=== PATIENT | female | born 1950 | race Caucasian/White ===

== ENCOUNTER → 2016-05-29 | Outpatient (CLI) | payer OTHER ==
[~2016-05-29] MED LIST: IOPAMIDOL (ISOVUE 370) 100 ML BTL IV ONE
--- NOTE | 2016-05-29 13:03 | CT ---
CT Angiography of the Abdomen and Pelvis Indication: Celiac stenosis. Technique: 1.5 mm contiguous helical axial scanning was performed through the abdomen and pelvis afte r the uneventful administration of IV contrast. The patient received 95 mL of Isovue-370. Routine rec onstructions were performed in the coronal and sagittal planes. Dose reduction technique was performe d. Comparison: May 08, 2016. Findings: Linear scarring is present at the left lung base. There are separate origins to the splenic artery and the remainder of the common hepatic artery. The left gastric artery originates off the sp lenic artery. An 8 mm splenic artery origin narrows to 2.8 mm at the ostia. A 7.8 mm common hepatic a rtery origin narrows to 2.7 mm at the ostia. The SMA is widely patent. Dual renal arteries are presen t on the right that are widely patent. Dual renal arteries are present on the left that are widely pa tent. The YUSEF is patent. Infrarenal abdominal aorta, common iliac, internal iliac, and external iliac arteries are widely patent. Common femoral arteries are widely patent. There is no evidence of aneur ysmal dilation. Mild calcified atherosclerotic disease is present. The liver, spleen, adrenals, and pancreas are unremarkable. There is a nonobstructing punctate calcul us in the right lower collecting system measuring 2.2 mm. Small bowel and colon are unremarkable. Non aggressive sclerotic lesion is present in the right inferior pubic rami likely representing a bone is land. Mild degenerative changes of the spine are present. Impression: 1. There are separate trunks to the splenic and common hepatic artery off the aorta. Both are stenoti c, but this is likely of no clinical significance. The remainder of the visceral vasculature is widel y patent. 2. Punctate nonobstructing right renal calculus, lower collecting system.
== END ==
LOC: FIMAGING 10:49
PROVIDERS: ATTEND Family Medicine
DX: Z03.89 Encounter for observation for other suspected diseases and conditions ruled out (principal); N20.0 Calculus of kidney
CPT/HCPCS: Q9967

== ENCOUNTER → 2016-12-17 | Outpatient (CLI) | payer OTHER | LOC: FIMAGING 07:01 | PROVIDERS: ATTEND Specialist ==

== ENCOUNTER → 2017-04-27 | Outpatient (CLI) | payer OTHER | LOC: BMCIMAGING 15:16 | PROVIDERS: ATTEND Family Medicine | DX: Z13.820 Encounter for screening for osteoporosis (principal); M85.89 Other specified disorders of bone density and structure, multiple sites ==

== ENCOUNTER 2017-07-23 10:30 | Observation (INO) | payer OTHER, MEDICARE ==
[2017-07-23] MEDS ORDERED: ONDANSETRON 4 MG/2 ML VIAL IVP ONE ×2 (11:03→12:16)
[2017-07-23] MEDS ORDERED: HYDROmorphONE/DILAUDID 2 MG/ML INJ IVP ONE ×2 (11:09→11:30)
--- NOTE | 2017-07-23 11:15 | EDPHY ---
General Time Seen by Provider: 07/23/17 11:10 Narrative: CHIEF COMPLAINT: Flank pain HISTORY OF PRESENT ILLNESS: Patient complains of right flank pain. This started abruptly this morning. She had already awoke prior to the pain starting. It is significant, 10/10 pain. No position of comfort. Located on the right flank and radiating into the suprapubic abdomen. Nausea but no vomiting. No fever. No trauma or injury. Some dysuria. No hematuria. No previous history of renal colic or stones. No history of pyelonephritis. She does have history of biliary colic. No other associated complaints or modifying factors. REVIEW OF SYSTEMS: Ten systems reviewed and are negative unless otherwise noted in the HPI PCP: Dr. Cyndy Hodges SPECIALISTS: None PAST MEDICAL HISTORY: Biliary colic PAST SURGICAL HISTORY: No recent surgeries SOCIAL HISTORY: Nonsmoker. No drug or alcohol use. FAMILY HISTORY: Noncontributory EXAMINATION General Appearance: Alert, no distress, in obvious discomfort. Head: normocephalic, atraumatic Eyes: Pupils equal and round, no conjunctival pallor or injection ENT, Mouth: Mucous membranes moist. Neck: Normal inspection, supple, non-tender Respiratory: Lungs are clear to auscultation Cardiovascular: Tachycardic rate. Regular rhythm. No murmur Gastrointestinal: Abdomen is soft and nondistended. There is moderate right CVA tenderness. There is moderate suprapubic tenderness. No tympany. No rigidity. No guarding. Back: non-tender, no bony abnormalities Neurological: A&O, nonfocal, normal gait Skin: Warm and dry, no rash no petechiae or purpura Extremities: Nontender, no pedal edema Psychiatric: Mood and affect normal DIFFERENTIAL DIAGNOSES: Including but not limited to pyelonephritis, renal colic, ureteral stone, bladder calculus, biliary colic, diverticulitis, colitis MDM: 11:10 a.m. Acute right flank pain with suspected renal colic. She has no position of comfort and has moderate right CVA tenderness. Vital Signs suggest kidney stone as well. She is afebrile. She is not vomiting. She is in no acute distress but is in obvious discomfort. Pain medication is currently being administered. 12:00 p.m. Notified by radiologist Dr. Barajas. There is a 5 mm stone in the right distal ureter near the UVJ. Moderate hydronephrosis. 12:20 p.m. Patient re-evaluated. She is nauseated but her pain is improving. Continue IV fluid resuscitation. Urinalysis has just been sent. 12:50 p.m. Urinalysis shows 2+ leukocyte esterase had multiple at blood cells. I reviewed this lab with Dr. Mast, and he recommends starting antibiotic therapy. 1:00 p.m. Patient re-evaluated. She was initially feeling better, that she is now feeling sweaty and has vomited again. I have ordered a dose of promethazine. Continue to monitor. 1:30 p.m. Patient is resting comfortably but still nauseated feeling sweaty. 2:00 p.m. patient re-evaluated. She now appears to be feeling worse. She is perseverating diaphoretic. Her vital signs remain within normal limits. I have ordered further IV fluid, and an additional dose of pain medication. 2:20 p.m. Case discussed with hospitalist Dr. Mera. He will admit the patient to his service. He requested we start within observation, medical-surgical bed. Her request lactic acid be drawn at this time. This has been done. She has been admitted in stable condition with pending lactic acid 2:35 p.m. Lactic acid is within normal limits at 1.7. Dr. Mera is requesting Urology consult and I have paged them. 2:50 p.m. Case discussed with on-call urologist Dr. Mijares. He will provide consultation. He requested the patient remain nothing by mouth after midnight for the possibility of surgical intervention tomorrow. I have communicated this with the patient. SUPERVISION: Patient was evaluated and examined in conjunction with my secondary supervising physician as documented. We have both examined the patient. - Diagnostics Imaging Results: Imaging Impressions Abdomen/Pelvis CT 07/23/17 11:23 Impression: 1. 5-mm calculus distal right ureter at the ureterovesical junction, resulting in moderate hydronephrosis. 2. Bilateral nephrolithiasis. 3. No intra-abdominal mass or lymphadenopathy. Findings discussed with Emergency Department, Eyal Jay PA-C on July 23, 2017 at 1159 hours. Attention: This CT examination is specifically designed to evaluate patients who are clinically suspected of having acute obstructive uropathy. This examination does not use radiographic contrast, and as such, provides only a limited evaluation of the abdomen, pelvis and retroperitoneum. If there is further clinical suspicion for pathological conditions other than obstructive uropathy, a complete CT evaluation of the abdomen and pelvis utilizing intravenous, oral, and rectal contrast should be considered. - History Smoking Status: Never smoked - Objective Vital Signs: Initial Vital Signs Heart Rate 82 07/23/17 10:36 Respiratory Rate 17 07/23/17 10:36 O2 Sat (%) 100 07/23/17 10:36 O2 Delivery Mode Nasal Cannula O2 (L/minute) 2 Allergies/Adverse Reactions: Penicillins Allergy (Verified 07/23/17 10:34) Sulfa (Sulfonamide Antibiotics) Allergy (Verified 07/23/17 10:34) Home Medications: Medication Instructions Recorded Aspirin [Aspirin 81mg (*)] 81 mg PO DAILY 07/23/17 Docusate Sodium [Colace 100 MG (*)] 100 mg PO DAILY 07/23/17 Evolocumab [Repatha Syringe] 140 mg SQ Q14D 07/23/17 Herbals/Supplements -Info Only 1 ea PO DAILY 07/23/17 Multivitamins [Multivitamin (*)] 1 each PO DAILY 07/23/17 Laboratory Results: Laboratory Results 07/23/17 11:00 07/23/17 11:00 07/23/17 07/23/17 07/23/17 12:05 11:00 11:00 WBC RBC Hgb Hct MCV MCH MCHC RDW Plt Count MPV Neut % (Auto) Lymph % (Auto) [place] % (Auto) Eos % (Auto) Baso % (Auto) Nucleat RBC Rel Count Absolute Neuts (auto) Absolute Lymphs (auto) Absolute Monos (auto) Absolute Eos (auto) Absolute Basos (auto) Absolute Nucleated RBC Immature Gran % Immature Gran # PT 12.6 SEC SEC (12.0-15.0) INR 0.92 (0.83-1.16) APTT 22.9 SEC L SEC (23.0-38.0) Sodium 142 mEq/L mEq/L (135-145) Potassium 3.8 mEq/L mEq/L (3.5-5.2) Chloride 109 mEq/L mEq/L (97-110) Carbon Dioxide 18 mEq/l L mEq/l (22-31) Anion Gap 15 mEq/L mEq/L (8-16) BUN 15 mg/dL mg/dL (7-23) Creatinine 0.8 mg/dL mg/dL (0.6-1.0) Estimated GFR > 60 Glucose 124 mg/dL H mg/dL (70-100) Calcium 9.7 mg/dL mg/dL (8.5-10.4) Total Bilirubin 0.8 mg/dL mg/dL (0.1-1.4) Conjugated Bilirubin 0.2 mg/dL mg/dL (0.0-0.5) Unconjugated Bilirubin 0.6 mg/dL mg/dL (0.0-1.1) AST 26 IU/L IU/L (14-46) ALT 39 IU/L IU/L (9-52) Alkaline Phosphatase 108 IU/L IU/L (38-126) Total Protein 7.5 g/dL g/dL (6.3-8.2) Albumin 4.5 g/dL g/dL (3.5-5.0) Lipase 75 IU/L IU/L (23-300) Urine Color YELLOW Urine Appearance MODERATELY TURBID Urine pH 8.0 H (5.0-7.5) Ur Specific [place] 1.020 (1.002-1.030) Urine Protein 1+ H (NEGATIVE) Urine Ketones 1+ H (NEGATIVE) Urine Blood NEGATIVE (NEGATIVE) Urine Nitrate NEGATIVE (NEGATIVE) Urine Bilirubin NEGATIVE (NEGATIVE) Urine Urobilinogen NEGATIVE EU EU (0.2-1.0) Ur Leukocyte Esterase 2+ H (NEGATIVE) Urine RBC 5-10 /hpf H /hpf (0-3) Urine WBC 50-182 /hpf H /hpf (0-3) Ur Epithelial Cells TRACE /lpf /lpf (NONE-1+) Urine Mucus TRACE /lpf /lpf (NONE-1+) Urine Glucose NEGATIVE (NEGATIVE) 07/23/17 11:00 WBC 8.40 10^3/uL 10^3/uL (3.80-9.50) RBC 4.31 10^6/uL 10^6/uL (4.18-5.33) Hgb 14.3 g/dL g/dL (12.6-16.3) Hct 40.8 % % (38.0-47.0) MCV 94.7 fL fL (81.5-99.8) MCH 33.2 pg pg (27.9-34.1) MCHC 35.0 g/dL g/dL (32.4-36.7) RDW 12.6 % % (11.5-15.2) Plt Count 318 10^3/uL 10^3/uL (150-400) MPV 9.5 fL fL (8.7-11.7) Neut % (Auto) 66.5 % % (39.3-74.2) Lymph % (Auto) 23.2 % % (15.0-45.0) [place] % (Auto) 7.5 % % (4.5-13.0) Eos % (Auto) 1.5 % % (0.6-7.6) Baso % (Auto) 1.1 % % (0.3-1.7) Nucleat RBC Rel Count 0.0 % % (0.0-0.2) Absolute Neuts (auto) 5.58 10^3/uL 10^3/uL (1.70-6.50) Absolute Lymphs (auto) 1.95 10^3/uL 10^3/uL (1.00-3.00) Absolute Monos (auto) 0.63 10^3/uL 10^3/uL (0.30-0.80) Absolute Eos (auto) 0.13 10^3/uL 10^3/uL (0.03-0.40) Absolute Basos (auto) 0.09 10^3/uL 10^3/uL (0.02-0.10) Absolute Nucleated RBC 0.00 10^3/uL 10^3/uL (0-0.01) Immature Gran % 0.2 % % (0.0-1.1) Immature Gran # 0.02 10^3/uL 10^3/uL (0.00-0.10) PT INR APTT Sodium Potassium Chloride Carbon Dioxide Anion Gap BUN Creatinine Estimated GFR Glucose Calcium Total Bilirubin Conjugated Bilirubin Unconjugated Bilirubin AST ALT Alkaline Phosphatase Total Protein Albumin Lipase Urine Color Urine Appearance Urine pH Ur Specific [place] Urine Protein Urine Ketones Urine Blood Urine Nitrate Urine Bilirubin Urine Urobilinogen Ur Leukocyte Esterase Urine RBC Urine WBC Ur Epithelial Cells Urine Mucus Urine Glucose Medications Given: Hydromorphone HCl (Dilaudid) 0.2 - 1 mg IVP Q2 PRN PRN Reason: Pain, Severe Unable to Take PO Stop: 08/02/17 14:40 Last Admin: 07/23/17 15:19 Dose: 1 mg Discontinued Medications Fentanyl (Sublimaze) 100 mcg IVP EDNOW ONE Stop: 07/23/17 14:05 Last Admin: 07/23/17 14:35 Dose: 100 mcg Hydromorphone HCl (Dilaudid) 1 mg IVP EDNOW ONE Stop: 07/23/17 11:10 Last Admin: 07/23/17 11:14 Dose: 1 mg Hydromorphone HCl (Dilaudid) 1 mg IVP EDNOW ONE Stop: 07/23/17 11:31 Last Admin: 07/23/17 11:37 Dose: 1 mg Sodium Chloride (Ns) 1,000 mls @ 0 mls/hr IV ONCE ONE PRN Reason: Wide Open Stop: 07/23/17 11:18 Last Admin: 07/23/17 11:17 Dose: 1,000 mls Levofloxacin/Dextrose (Levaquin 750 Mg (Premix)) 150 mls @ 100 mls/hr IV EDNOW ONE PRN Reason: Protocol Stop: 07/23/17 14:23 Last Admin: 07/23/17 13:12 Dose: 150 mls Sodium Chloride (Ns) 1,000 mls @ 0 mls/hr IV EDNOW ONE; Wide Open PRN Reason: Protocol Stop: 07/23/17 14:22 Last Admin: 07/23/17 14:34 Dose: 1,000 mls Ketorolac Tromethamine (Toradol) 15 mg IVP ONCE ONE Stop: 07/23/17 11:40 Last Admin: 07/23/17 11:43 Dose: 15 mg Ketorolac Tromethamine (Toradol) 15 mg IVP EDNOW ONE Stop: 07/23/17 12:01 Last Admin: 07/23/17 12:04 Dose: Not Given Ondansetron HCl (Zofran) 4 mg IVP EDNOW ONE Stop: 07/23/17 11:04 Last Admin: 07/23/17 11:07 Dose: 4 mg Ondansetron HCl (Zofran) 4 mg IVP EDNOW ONE Stop: 07/23/17 12:17 Last Admin: 07/23/17 12:19 Dose: 4 mg Promethazine HCl (Phenergan) 12.5 mg IVP ONCE ONE Stop: 07/23/17 13:02 Last Admin: 07/23/17 13:34 Dose: 12.5 mg Departure - Departure Disposition: [facility] Inpatient Acute Clinical Impression: Renal colic on right side, Ureteral stone with hydronephrosis Condition: Good
[2017-07-23] MEDS ORDERED: NS 1,000 ML IV ONE ×2 (11:17→14:21)
[2017-07-23 11:20] LABS: PLATELET COUNT 318 10^3/uL (150-400)
[2017-07-23 11:31] LABS: INR 0.92 (0.83-1.16); PROTIME(PATIENT) 12.6 SEC (12.0-15.0)
[2017-07-23] MEDS ORDERED: KETOROLAC 15 MG/1 ML SDV IVP ONE (11:39)
[2017-07-23] MEDS ORDERED: KETOROLAC 30 MG/1 ML SDV IVP ONE (12:00)
[2017-07-23] MEDS ORDERED: PROMETHAZINE HCL 25 MG/ML INJ IVP ONE (13:01)
[2017-07-23] MEDS ORDERED: fentaNYL 100 MCG/2 ML INJ IVP ONE (14:04)
[2017-07-23] MEDS ORDERED: ONDANSETRON 4 MG/2 ML VIAL IVP PRN (14:41)
[2017-07-23] MEDS ORDERED: HYDROmorphONE/DILAUDID 1 MG/ML INJ IVP PRN (14:41)
[2017-07-23] MEDS ORDERED: diphenhydrAMINE 25 MG CAP PO PRN (14:41)
[2017-07-23] MEDS ORDERED: ACETAMINOPHEN 325 MG TAB PO PRN (14:41)
[2017-07-23] MEDS ORDERED: HYDROmorphONE/DILAUDID 2 MG TAB PO PRN (14:41)
[2017-07-23] MEDS ORDERED: PROMETHAZINE HCL 25 MG TAB PO PRN (14:41)
[2017-07-23] MEDS ORDERED: ONDANSETRON DISINTEGRATING 4 MG TAB PO PRN (14:41)
[2017-07-23] MEDS ORDERED: PROMETHAZINE HCL 25 MG/ML INJ IVP PRN (14:41)
[2017-07-23] MEDS ORDERED: CIPROFLOXACIN 400 MG/DEXTROSE 200 ML IV SCH (14:45)
[2017-07-23] MEDS ORDERED: HYDROmorphONE/DILAUDID 2 MG/ML INJ ONE (15:18)
[2017-07-23] MEDS ORDERED: MAGNESIUM HYDROXIDE 30 ML UDCUP PO PRN (16:45)
[2017-07-23] MEDS ORDERED: BISACODYL 10 MG SUPP PR PRN (16:45)
[2017-07-23] MEDS ORDERED: POLYETHYLENE GLYCOL 3350 17 GM PKT PO PRN (16:45)
[2017-07-23] MEDS ORDERED: LACTULOSE 20 GM/30 ML UDCUP PO PRN (16:45)
--- NOTE | 2017-07-23 16:49 | PDGENHP ---
History and Physical - Chief Complaint Acute flank pain - History of Present Illness PCP: Dr. Hodges HPI: 66 yo F p/w acute flank pain characterized as 10/10 pain located in R flank /lower back, radiating to R suprapubic area, w/ associated vomiting, nausea, urinary hesitency, oliguria. Onset of symptoms this AM, duration constant. She has never had pain like this before. She reports it is of different character/ location than her "gall bladder" pain, which is post-prandial and in the RUQ/ anterior quadrant. Pain exacerbated by movement, partially alleviated w/ toradol /dilaudid in ED. PO intake exacerbated the vomiting, and she has therefore avoided PO intake today. In the ED, she began having rigors and became diaphoretic, but her BP/HR remained stable. History Information - Allergies/Home Medication List Allergies/Adverse Reactions: Penicillins Allergy (Verified 07/23/17 10:34) Sulfa (Sulfonamide Antibiotics) Allergy (Verified 07/23/17 10:34) Home Medications: Aspirin [Aspirin 81mg (*)] 81 mg PO DAILY 07/23/17 [Last Taken 07/23/17] Docusate Sodium [Colace 100 MG (*)] 100 mg PO DAILY 07/23/17 [Last Taken ] Evolocumab [Repatha Syringe] 140 mg SQ Q14D 07/23/17 [Last Taken 07/09/17] Herbals/Supplements -Info Only 1 ea PO DAILY 07/23/17 [Last Taken Unknown] Multivitamins [Multivitamin (*)] 1 each PO DAILY 07/23/17 [Last Taken 07/23/17] I have personally reviewed and updated: family history, medical history, social history, surgical history - Past Medical History hyperlipidemia Additional medical history: Biliary pain - Surgical History Additional surgical history: Knee/meniscal - Family History Additional family history: Sister with renal cell carcinoma - Social History Smoking Status: Never smoked Alcohol Use: None Drug Use: None Additional social history: Active lifestyle, exercises regularly Review of Systems Review of Systems: ROS: 10pt was reviewed & negative except for what was stated in HPI & below Constitutional: Reports: chills, other (Diaphoresis) Gastrointestinal: Reports: vomitting, nausea Genitourinary: Reports: other (Hesitancy, oliguria, flank pain) Physical Exam Physical Exam: Temp Pulse Resp BP Pulse Ox 36.9 C 86 14 146/66 H 99 07/23/17 15:21 07/23/17 15:21 07/23/17 15:21 07/23/17 15:21 07/23/17 15:21 O2 (L/minute) 2 Constitutional: appears nourished, uncomfortable, No no apparent distress (Mild) , No not in pain (Moderate) Eyes: PERRL, anicteric sclera, EOMI Ears, Nose, Mouth, Throat: moist mucous membranes, hearing normal, ears appear normal, no oral mucosal ulcers Cardiovascular: regular rate and rhythym, no murmur, rub, or gallop, No edema Respiratory: no respiratory distress, no rales or rhonchi, clear to auscultation Gastrointestinal: tenderness (Right flank), No normoactive bowel sounds ( Hypoactive bowel sounds), No guarding, No distension Genitourinary: no bladder fullness, no bladder tenderness Skin: No abrasion (Over right flank), No rash Neurologic: AAOx3, sensation intact bilaterally, No weakness Psychiatric: not encephalopathic, anxious, flat affect, No agitated Lab Data & Imaging Review 07/23/17 11:00 07/23/17 11:00 WBC 8.40 10^3/uL (3.80-9.50) 07/23/17 11:00 RBC 4.31 10^6/uL (4.18-5.33) 07/23/17 11:00 Hgb 14.3 g/dL (12.6-16.3) 07/23/17 11:00 Hct 40.8 % (38.0-47.0) 07/23/17 11:00 MCV 94.7 fL (81.5-99.8) 07/23/17 11:00 MCH 33.2 pg (27.9-34.1) 07/23/17 11:00 MCHC 35.0 g/dL (32.4-36.7) 07/23/17 11:00 RDW 12.6 % (11.5-15.2) 07/23/17 11:00 Plt Count 318 10^3/uL (150-400) 07/23/17 11:00 MPV 9.5 fL (8.7-11.7) 07/23/17 11:00 Neut % (Auto) 66.5 % (39.3-74.2) 07/23/17 11:00 Lymph % (Auto) 23.2 % (15.0-45.0) 07/23/17 11:00 [place] % (Auto) 7.5 % (4.5-13.0) 07/23/17 11:00 Eos % (Auto) 1.5 % (0.6-7.6) 07/23/17 11:00 Baso % (Auto) 1.1 % (0.3-1.7) 07/23/17 11:00 Nucleat RBC Rel Count 0.0 % (0.0-0.2) 07/23/17 11:00 Absolute Neuts (auto) 5.58 10^3/uL (1.70-6.50) 07/23/17 11:00 Absolute Lymphs (auto) 1.95 10^3/uL (1.00-3.00) 07/23/17 11:00 Absolute Monos (auto) 0.63 10^3/uL (0.30-0.80) 07/23/17 11:00 Absolute Eos (auto) 0.13 10^3/uL (0.03-0.40) 07/23/17 11:00 Absolute Basos (auto) 0.09 10^3/uL (0.02-0.10) 07/23/17 11:00 Absolute Nucleated RBC 0.00 10^3/uL (0-0.01) 07/23/17 11:00 Immature Gran % 0.2 % (0.0-1.1) 07/23/17 11:00 Immature Gran # 0.02 10^3/uL (0.00-0.10) 07/23/17 11:00 PT 12.6 SEC (12.0-15.0) 07/23/17 11:00 INR 0.92 (0.83-1.16) 07/23/17 11:00 APTT 22.9 SEC (23.0-38.0) L 07/23/17 11:00 VBG Lactic Acid 1.7 mmol/L (0.7-2.1) 07/23/17 14:30 Sodium 142 mEq/L (135-145) 07/23/17 11:00 Potassium 3.8 mEq/L (3.5-5.2) 07/23/17 11:00 Chloride 109 mEq/L (97-110) 07/23/17 11:00 Carbon Dioxide 18 mEq/l (22-31) L 07/23/17 11:00 Anion Gap 15 mEq/L (8-16) 07/23/17 11:00 BUN 15 mg/dL (7-23) 07/23/17 11:00 Creatinine 0.8 mg/dL (0.6-1.0) 07/23/17 11:00 Estimated GFR > 60 07/23/17 11:00 Glucose 124 mg/dL (70-100) H 07/23/17 11:00 Calcium 9.7 mg/dL (8.5-10.4) 07/23/17 11:00 Total Bilirubin 0.8 mg/dL (0.1-1.4) 07/23/17 11:00 Conjugated Bilirubin 0.2 mg/dL (0.0-0.5) 07/23/17 11:00 Unconjugated Bilirubin 0.6 mg/dL (0.0-1.1) 07/23/17 11:00 AST 26 IU/L (14-46) 07/23/17 11:00 ALT 39 IU/L (9-52) 07/23/17 11:00 Alkaline Phosphatase 108 IU/L (38-126) 07/23/17 11:00 Total Protein 7.5 g/dL (6.3-8.2) 07/23/17 11:00 Albumin 4.5 g/dL (3.5-5.0) 07/23/17 11:00 Lipase 75 IU/L (23-300) 07/23/17 11:00 Urine Color YELLOW 07/23/17 12:05 Urine Appearance MODERATELY TURBID 07/23/17 12:05 Urine pH 8.0 (5.0-7.5) H 07/23/17 12:05 Ur Specific [place] 1.020 (1.002-1.030) 07/23/17 12:05 Urine Protein 1+ (NEGATIVE) H 07/23/17 12:05 Urine Ketones 1+ (NEGATIVE) H 07/23/17 12:05 Urine Blood NEGATIVE (NEGATIVE) 07/23/17 12:05 Urine Nitrate NEGATIVE (NEGATIVE) 07/23/17 12:05 Urine Bilirubin NEGATIVE (NEGATIVE) 07/23/17 12:05 Urine Urobilinogen NEGATIVE EU (0.2-1.0) 07/23/17 12:05 Ur Leukocyte Esterase 2+ (NEGATIVE) H 07/23/17 12:05 Urine RBC 5-10 /hpf (0-3) H 07/23/17 12:05 Urine WBC 50-182 /hpf (0-3) H 07/23/17 12:05 Ur Epithelial Cells TRACE /lpf (NONE-1+) 07/23/17 12:05 Urine Mucus TRACE /lpf (NONE-1+) 07/23/17 12:05 Urine Glucose NEGATIVE (NEGATIVE) 07/23/17 12:05 Visualized and Interpreted imaging results: Yes Interpretation: CT of the abdomen demonstrating right-sided 5 mm stone in the distal ureter near the UVJ with hydronephrosis Assessment & Plan Assessment: 66-year-old female presenting with acute kidney stone and resultant hydronephrosis Plan: 1. Kidney stone. Acute obstruction in the right distal ureter, 5 mm, most likely require surgical intervention for removal, new problem this provider, further workup indicated. -strain urine, since stone for analysis -high rate IV fluids at 200 cc an hour -supportive pain medications and antiemetics -discussed with Eyal Jay, emergency department provider, he has reported to me that Dr. Devendra Mijares has been consulted and will see the patient tomorrow to evaluate for cystoscopy -maintain NPO after midnight -reviewed outside records including 05/29/2016 CT of the abdomen demonstrating right-sided kidney stone, 2.2 mm at that time, current CT demonstrates bilateral stones, patient will most likely require ongoing stone management for prevention moving forward 2. Hydronephrosis. Secondary to obstruction, creatinine currently normal, monitor creatinine level closely, monitor urine output, give high rate IV fluids , will most likely require surgical intervention for removal tomorrow if the stone does not pass 3. Metabolic acidosis. Acute, most likely secondary to starvation ketosis in the setting of poor oral intake, lactic acid level is normal, continue to monitor, continue high rate IV fluids Diet. Regular, NPO after midnight Prophylaxis. Low risk patient, SCDs, avoid pharm given surgical procedure tomorrow Code. Full Disposition anticipated discharge is 07/24, pending further workup and surgical evaluation in a.m..
[2017-07-23] MEDS: HYDROmorphONE/DILAUDID 2 MG/ML INJ IVP PRN ×2 (17:03→20:08)
[2017-07-23] MEDS: NS 1,000 ML IV SCH ×2 (17:07→22:29)
[2017-07-23] MEDS: KETOROLAC 15 MG/1 ML SDV IVP SCH (18:23)
[2017-07-23] MEDS: SENNOSIDES/DOCUSATE SODIUM TAB PO SCH (20:07)
[2017-07-24] MEDS: KETOROLAC 15 MG/1 ML SDV IVP SCH ×4 (01:32→12:26)
[2017-07-24] MEDS: NS 1,000 ML IV SCH (03:04)
[2017-07-24 05:40] LABS: PLATELET COUNT 212 10^3/uL (150-400)
[2017-07-24] MEDS ORDERED: fentaNYL 100 MCG/2 ML INJ ONE (07:43)
[2017-07-24] MEDS ORDERED: PROPOFOL 200 MG/20 ML VIAL ONE (07:43)
[2017-07-24] MEDS ORDERED: LIDOCAINE 2% 100 MG/5 ML SYR ONE (07:45)
[2017-07-24] MEDS ORDERED: ROCURONIUM 50 MG/5 ML VIAL ONE (07:45)
[2017-07-24] MEDS ORDERED: LIDOCAINE 2% JELLY 20 ML (UROJECT) ONE (07:49)
[2017-07-24] MEDS ORDERED: IOPAMIDOL (ISOVUE-300) 150 ML BTL ONE (07:49)
[2017-07-24] MEDS ORDERED: ceFAZolin 2 GM/SWFI 20 ML SYR IVP ONE (07:56)
[2017-07-24] MEDS ORDERED: MIDAZOLAM 2 MG/2 ML VIAL IVP ONE (08:01)
--- NOTE | 2017-07-24 08:06 | PDANEPAE ---
ANE History of Present Illness here for ureteroscopy ANE Past Medical History - Cardiovascular History Hx Hypertension: No Hx Arrhythmias: No Hx Chest Pain: No Cardiovascular History Comment: HLD - Pulmonary History Hx Oxygen in Use at Home: No Hx Sleep Apnea: No Sleep Apnea Screening Result - Last Documented: Negative - Endocrine History Hx Diabetes: No - GI History Gastrointestinal History Comment: constipation - Chronic Pain History Chronic Pain: No ANE Review of Systems Review of Systems: - Exercise capacity Exercise capacity: >=4 METS ANE Patient History - Allergies Allergies/Adverse Reactions: Penicillins Allergy (Verified 07/23/17 10:34) Sulfa (Sulfonamide Antibiotics) Allergy (Verified 07/23/17 10:34) - Home Medications Home Medications: Aspirin [Aspirin 81mg (*)] 81 mg PO DAILY 07/23/17 [Last Taken 07/23/17] Docusate Sodium [Colace 100 MG (*)] 100 mg PO DAILY 07/23/17 [Last Taken ] Evolocumab [Repatha Syringe] 140 mg SQ Q14D 07/23/17 [Last Taken 07/09/17] Herbals/Supplements -Info Only 1 ea PO DAILY 07/23/17 [Last Taken Unknown] Multivitamins [Multivitamin (*)] 1 each PO DAILY 07/23/17 [Last Taken 07/23/17] - NPO status NPO Status: no food or drink >8 hours NPO Since - Liquids (Date): 07/24/17 NPO Since - Liquids (Time): 12:00 NPO Since - Solids (Date): 07/24/17 NPO Since - Solids (Time): 12:00 - Anes Hx Anes Hx: post operative nausea and vomiting - Smoking Hx Smoking Status: Never smoked - Alcohol Use Alcohol Use: None - Family Anes Hx Family Anes Hx: none ANE Labs/Vital Signs - Labs Result Diagrams: 07/24/17 04:28 07/24/17 04:28 - Vital Signs Blood Pressure: 139/64 Heart Rate: 86 Respiratory Rate: 16 O2 Sat (%): 96 Height: 167.64 cm Weight: 79.379 kg ANE Physical Exam - Airway Neck exam: FROM Mallampati Score: Class 2 Mouth exam: normal dental/mouth exam - Pulmonary Pulmonary: no respiratory distress, clear to auscultation - Cardiovascular Cardiovascular: regular rate and rhythym, no murmur, rub, or gallop - ASA Status ASA Status: II ANE Anesthesia Plan Anesthesia Plan: general endotracheal anesthesia
[2017-07-24] MEDS ORDERED: SCOPOLAMINE HYDROBROMIDE 1 MG/3 DAYS PATCH TD ONE (08:09)
[2017-07-24] MEDS ORDERED: SCOPOLAMINE HYDROBROMIDE 1 MG/3 DAYS PATCH TD SCH (08:15)
[2017-07-24] MEDS ORDERED: PROPOFOL/EMULSION 500 MG/50 ML BOTTLE IV ONE (08:37)
--- NOTE | 2017-07-24 08:56 | GCON ---
[f rep st] CONSULTATION DATE OF CONSULTATION: 07/24/2017 REASON FOR CONSULTATION: Ureteral stone. HISTORY OF PRESENT ILLNESS: This is a 66-year-old female with a history of nephrolithiasis, who deve loped the sudden onset of right flank pain, unlike prior pain that she had had with her gallbladder, associated with nausea and vomiting. She presented to the emergency room. CT scan was performed and personally reviewed, which reveals a 5 x 4 mm distal right ureteral stone. The patient was admitted , hydrated, and kept n.p.o. for surgery. I have discussed with the patient the risks and benefits of surgery, and informed consent has been ob tained for ureteroscopy. PAST MEDICAL HISTORY: Hyperlipidemia. PAST SURGICAL HISTORY: Orthopedic. FAMILY HISTORY: Renal cell carcinoma with her sister. SOCIAL HISTORY: No smoking. She is . No alcohol or drug abuse. ALLERGIES: To penicillin and sulfa. HOME MEDICATIONS: Aspirin, Colace, evolocumab. REVIEW OF SYSTEMS: Negative in all 12 systems. PHYSICAL EXAMINATION: VITAL SIGNS: Her temperature is 36.9, pulse 86, respirations 14, blood pressu re 146/66, pulse 99, and oxygen saturation is 99. GENERAL: She is alert and oriented, with a normal mood and affect. NECK: Supple. RESPIRATORY: Effort is nonlabored. ABDOMEN: Soft, nontender, no ndistended. GENITALIA: She has normal external genitalia (performed in the operating room). EXTREM ITIES: Nontender. ASSESSMENT: Distal right ureteral stone. PLAN: Cystoscopy, ureteroscopy, laser fragmentation, and stent insertion. Again, informed consent w as obtained. /[id number]/MODL
--- NOTE | 2017-07-24 08:58 | SUROPNOTE ---
ALESS[facility] Operative Report - Surgery ureteroscopy NO STONE Stent inserted dictation code [id number]
[2017-07-24] MEDS ORDERED: ONDANSETRON 4 MG/2 ML VIAL IVP PRN (09:09)
[2017-07-24] MEDS ORDERED: ACETAMINOPHEN 500 MG TAB PO PRN (09:09)
[2017-07-24] MEDS ORDERED: NALOXONE HCL 0.4 MG/ML INJ IVP PRN (09:09)
[2017-07-24] MEDS ORDERED: PROMETHAZINE HCL 25 MG/ML INJ IVP PRN (09:09)
--- NOTE | 2017-07-24 09:11 | GOP ---
[f rep st] OPERATIVE REPORT DATE OF OPERATION: 07/24/2017 SURGEON: Alexander Mijares MD ANESTHESIA: General. PREOPERATIVE DIAGNOSIS: Distal right ureteral stone. POSTOPERATIVE DIAGNOSIS: Passed stone. PROCEDURE PERFORMED: Cystoscopy, ureteroscopy, stent insertion. FINDINGS: ESTIMATED BLOOD LOSS: Minimal. DESCRIPTION OF PROCEDURE: Patient was taken to the operating room. General anesthesia was induced. Patient was placed in the dorsal lithotomy position, prepped and draped in a sterile fashion. The 2 2-Mongolian cystoscope with a 30 degree lens was inserted through the patient's urethra into the patient 's bladder. Bladder was drained. There were no urothelial defects, masses or stones. The patient's right ureteral orifice was cannulated with a Sensor wire which was passed without difficulty into th e right renal pelvis. The inner trocar access sheath was passed over the guidewire gently dilating the distal right ureter and removed. A semi rigid ureteroscope was inserted alongside the wire into the proximal 3rd without stone seen. It was gradually withdrawn, again carefully inspecting the ureter. There was inflammation of the dis heladio right ureter, but no stone was seen. This scope was withdrawn. The wire was back-loaded on the cystoscope and a 6-Mongolian stent was placed in the right renal pelvis by fluoroscopy and seen to curl in the bladder by direct vision. The patient's bladder was drained. She was returned to the supine position, and at the time of this dictation was being prepared for extubation. indicating Ricarda Winters on July 24 on . Indication. COMPLICATIONS: None. DRAINS: Right-sided variable length 6-Mongolian stent. /[id number]/MODL
--- NOTE | 2017-07-24 09:14 | POSTANESTH ---
Post Anesthetic Evaluation Cardiovascular Status: Normal, Stable, Similar to Pre-Op Cond Respiratory Status: Normal, Stable, Similar to Pre-op Cond. Level of Consciousness/Mental Status: Can Participate in Eval, Alert and Oriented Pain Control: Adequate, Prn Tx Ordered Nausea/Vomiting Control: Adequate, Prn Tx Ordered Complications Possibly Related to Anesthesia: None Noted
[2017-07-24] MEDS: SENNOSIDES/DOCUSATE SODIUM TAB PO SCH (10:19)
--- NOTE | 2017-07-24 10:52 | GDS ---
[f rep st] DISCHARGE SUMMARY DIAGNOSIS: 1. Renal colic. 2. Dyslipidemia. CONSULTATIONS: Alexander Mijares MD PROCEDURES DONE: 1. CT scan of the abdomen and pelvis, 5 mm distal calculus at the UVJ with moderate hydronephrosis. 2. Ureteroscopy and right stent placement. HOSPITAL COURSE: The patient is a 66-year-old healthy woman who comes in with renal colic. CT scan confirmed a kidney stone. She was admitted overnight for pain control and antiemetics. Dr. Mijares took her into the OR the next morning, did a ureteroscopy which revealed no obvious stone, but did p lace a stent in the right ureter. She has done well postop and is ready to discharge home. Home med icines were continued. She also has a scopolamine patch on for 3 days to help with nausea and some Z ofran as needed for nausea as well. She prefers to use Tylenol for pain. FOLLOWUP INSTRUCTION: She should follow up with Dr. Mijares on Wednesday for stent removal. She can also follow up with Dr. Hodges as needed. /[id number]/MODL
--- NOTE | 2017-07-24 11:04 | ASMTLACE ---
LACE Length of stay for Answers: Less than 1 day current admission Acuity / Level of Answers: No Care: Did the patient have an inpatient admission? # of Emergency department Answers: 1-2 visits in the last 6 months Score: 1 Date Signed: 07/24/2017 11:03 AM Electronically Signed By:Susie Rios LCSW
--- NOTE | 2017-07-24 11:09 | ASDISCHSUM ---
Discharge Information Plan Status:Home with No Needs Medically Cleared to Leave: Discharge Date: CM D/C Disposition:Home, Routine, Self-Care ADT D/C Disposition:Home, Routine, Self-Care Projected Discharge Date: Transportation at D/C: Discharge Delay Reason: Follow-Up Date: Discharge Slot: Final Diagnosis: Placement Information Patient Contact Information Contact Name:CHAD Relationship: Address:[address] Work Phone: City:[place] Alternate Phone: State/Zip Code:[place] [address] Email: Financial Information Financial Class:Medicare Primary Plan Desc:MEDICARE OUTPATIENT Primary Plan Number:[id number] Secondary Plan Desc:[employer]/M[employer] SUPPLEMENT Secondary Plan Number:[id number] Assessment Information LACE LACE Length of stay for Answers: Less than 1 day current admission Acuity / Level of Answers: No Care: Did the patient have an inpatient admission? # of Emergency department Answers: 1-2 visits in the last 6 months Score: 1 Date Signed: 07/24/2017 11:03 AM Electronically Signed By:Susie Rios LCSW Case Management Discharge Plan Note Case Management Discharge Discharge Order Complete? Answers: Yes Patient to Obtain Answers: via Family Medications Transportation Arranged Answers: Family/Friends Discharge Comments Notes: Pt. is a 66-year-old woman admitted with acute flank pain and was determined to have a kidney stone. Had surgery and is d/cing independently today. Date Signed: 07/24/2017 11:07 AM Electronically Signed By:Susie Rios LCSW Intervention Information
[2017-07-24 12:29] VITALS: BP 133/65; PULSE 93; RESP 14; TEMP 98.3; O2SAT 90
== END 2017-07-24 12:50 | disposition home or self-care (01) ==
LOC: F1N 15:50
PROVIDERS: ADMIT Internal Medicine; ATTEND Internal Medicine
PROC: BT16YZZ Fluoroscopy of Right Ureter using Other Contrast (ICD-10-PCS; 2017-07-24)
PROC: 0T768DZ Dilation of Right Ureter with Intraluminal Device, Via Natural or Artificial Opening Endoscopic (ICD-10-PCS; principal; 2017-07-24 08:00)
DX: N23 Unspecified renal colic (principal); E78.5 Hyperlipidemia, unspecified; E87.2 Acidosis; E86.9 Volume depletion, unspecified; N20.0 Calculus of kidney; Z79.82 Long term (current) use of aspirin; Z87.442 Personal history of urinary calculi; Z88.0 Allergy status to penicillin; Z88.2 Allergy status to sulfonamides
CPT/HCPCS: 52332; 74176; 76001; 96361; 96365; 96375; 96376; 99285; C1758; C1769; C1894; C2625; G0378; J0690; J0744; J1170; J1885; J1956; J2001; J2250; J2405; J2550; J2704; J3010; Q9967; 82365-90

== ENCOUNTER → 2018-06-09 | Outpatient (CLI) | payer OTHER, MEDICARE | LOC: FIMAGING 11:15 | PROVIDERS: ATTEND Orthopaedic Surgery | DX: M79.605 Pain in left leg (principal); M79.89 Other specified soft tissue disorders; Z98.890 Other specified postprocedural states ==

== ENCOUNTER → 2018-09-30 | Outpatient (CLI) | payer OTHER, MEDICARE | LOC: FIMAGING 07:29 | PROVIDERS: ATTEND Physician Assistant | DX: K82.8 Other specified diseases of gallbladder (principal) ==